=== PATIENT | female | born 1985 | race Caucasian/White ===

== ENCOUNTER 2024-03-15 12:54 | Inpatient (IN) | payer MEDICAID ==
[~2024-03-15] VITALS: Ht 160 cm; Wt 150.1 kg
[~2024-03-15 12:54] MED LIST: ALLO-97 PO; LISI-894 PO; METO-325 PO
[2024-03-15] MEDS: LORazepam 2 MG/ML VIAL IM ONE (14:45)
[2024-03-15] MEDS: HALOPERIDOL LACTATE 5 MG/ML VIAL IM ONE (14:45)
[2024-03-15] MEDS: DiphenhydrAMINE HCL 50 MG/ML VIAL IM ONE (14:45)
[2024-03-15 15:13] LABS: BASOPHILS % (AUTO) 0.5 % (0.0-2.0); EOSINOPHILS % (AUTO) 0.7 % (1.0-6.0); HEMATOCRIT 48.5 % (36-46); HEMOGLOBIN 16.1 g/dL (12.0-16.0); LYMPHOCYTES # (AUTO) 2.8 K/uL (1.0-4.8); MEAN CORPUSCULAR HEMOGLOBIN 27.7 pg (26.0-34.0); MEAN CORPUSCULAR HGB CONC 33.1 G/dL (31.0-37.0); MEAN CORPUSCULAR VOLUME 83 fL (80-100); MONOCYTES # (AUTO) 0.5 K/uL (0.1-1.0); MONOCYTES % (AUTO) 5.3 % (2.0-9.0); NEUTROPHILS # (AUTO) 6.6 K/uL (1.8-7.7); NEUTROPHILS % (AUTO) 65.5 % (40.0-70.0); PLATELET COUNT (AUTO) 438 K/uL (150-450); RED BLOOD CELL COUNT(AUTO) 5.81 MIL/uL (4.00-5.20); RED CELL DISTRIBUTION WIDTH 14.9 % (11.5-14.5); WHITE BLOOD COUNT (AUTO) 10.1 K/uL (4.5-11.0)
[2024-03-15] MEDS: HALOPERIDOL 5 MG TABLET PO ONE (15:19)
[2024-03-15] MEDS: LORazepam 2 MG TABLET PO ONE (15:19)
[2024-03-15 15:38] LABS: ANION GAP 16 mmol/L (8-16); CALCIUM, TOTAL 9.8 mg/dL (8.8-10.5); CARBON DIOXIDE 21 mmol/L (22-29); CHLORIDE 100 mmol/L (98-107); CREATININE 1.07 mg/dL (0.60-1.30); GLOMERULAR FILTR. RATE CALC 58 mL/min (>60); GLUCOSE,RANDOM 139 mg/dL (70-110); POTASSIUM 4.2 mmol/L (3.5-5.1); SODIUM SERUM 137 mmol/L (136-145); UREA NITROGEN, BLOOD 31 mg/dL (7-18)
[2024-03-15 15:46] LABS: ALCOHOL, BLOOD (SERUM) < 3 mg/dL (0-10)
[2024-03-15] MEDS: LOPERAMIDE HCL 2 MG CAPSULE PO ONE (18:29)
[2024-03-15] MEDS ORDERED: ZOLPIDEM TARTRATE 10 MG TABLET PO PRN (23:00)
[2024-03-15] MEDS ORDERED: HALOPERIDOL 5 MG TABLET PO PRN (23:00)
[2024-03-16 05:10] LABS: COVID AG,FIA SOURCE NASAL SWAB
[2024-03-16] MEDS: LOPERAMIDE HCL 2 MG CAPSULE PO ONE (05:27)
[2024-03-16 05:32] LABS: SARS-COV2 (COVID) ANTIGEN,FIA Negative (Negative)
[2024-03-16] MEDS: DIPHENOXYLATE/ATROP 2.5-0.025 MG TABLET PO ONE (08:48)
[2024-03-16] MEDS: PHENOBARB/HYOSCY/ATROPINE/SCOP 5 ML UDCUP ELIXIR PO ONE (13:35)
[2024-03-16] MEDS: ONDANSETRON HCL 4 MG TABLET PO ONE (13:35)
[2024-03-16 23:12] VITALS: BP 111/66; PULSE 75; RESP 18; TEMP 97.6; O2SAT 97
[2024-03-16] MEDS ORDERED: LOPERAMIDE HCL 2 MG CAPSULE PO PRN (23:45)
[2024-03-16] MEDS ORDERED: DOCUSATE SODIUM 100 MG CAPSULE PO PRN (23:45)
[2024-03-16] MEDS ORDERED: GuaiFENesin/D-METHORPHAN [SUGAR-FREE] 200-20MG/10 ML SYRUP UDCUP PO PRN (23:45)
[2024-03-16] MEDS ORDERED: PETROLATUM,WHITE 28 GM JELLY TP PRN (23:45)
[2024-03-16] MEDS ORDERED: CloNIDine HCL 0.1 MG TABLET PO PRN (23:45)
[2024-03-16] MEDS ORDERED: ALBUTEROL SULFATE HFA 90 MCG/PUFF 8 GM INHALER IH PRN (23:45)
[2024-03-16] MEDS ORDERED: NICOTINE 14 MG/24 HOUR PATCH TD PRN (23:45)
[2024-03-16] MEDS ORDERED: ONDANSETRON HCL 4 MG TABLET PO PRN (23:45)
[2024-03-16] MEDS ORDERED: MAGNESIUM HYDROXIDE SUSPENSION 30 ML UDCUP PO PRN (23:45)
[2024-03-17] MEDS ORDERED: PNEUMOCOCCAL VACCINE POLYVALENT 0.5 ML SYRINGE [PPSV23] IM. ONE (00:30)
[2024-03-17] MEDS: MAG HYDROX/ALUMINUM HYD/SIMETH ES 30 ML SUSPENSION UDCUP PO PRN (06:01)
[2024-03-17 07:00] LABS: BASOPHILS % (AUTO) 0.5 % (0.0-2.0); EOSINOPHILS % (AUTO) 4.2 % (1.0-6.0); HEMATOCRIT 49.6 % (36-46); HEMOGLOBIN 16.6 g/dL (12.0-16.0); LYMPHOCYTES # (AUTO) 3.2 K/uL (1.0-4.8); LYMPHOCYTES % (AUTO) 31.6 % (22.0-44.0); MEAN CORPUSCULAR HEMOGLOBIN 28.2 pg (26.0-34.0); MEAN CORPUSCULAR HGB CONC 33.5 G/dL (31.0-37.0); MEAN CORPUSCULAR VOLUME 84 fL (80-100); MONOCYTES # (AUTO) 0.9 K/uL (0.1-1.0); MONOCYTES % (AUTO) 8.6 % (2.0-9.0); NEUTROPHILS # (AUTO) 5.6 K/uL (1.8-7.7); NEUTROPHILS % (AUTO) 55.1 % (40.0-70.0); PLATELET COUNT (AUTO) 467 K/uL (150-450); RED BLOOD CELL COUNT(AUTO) 5.89 MIL/uL (4.00-5.20); RED CELL DISTRIBUTION WIDTH 14.5 % (11.5-14.5); WHITE BLOOD COUNT (AUTO) 10.2 K/uL (4.5-11.0)
[2024-03-17 07:20] LABS: RBC MORPHOLOGY COMMENT NORMAL RBC MORPH
[2024-03-17 07:24] LABS: ALANINE AMINOTRANSFERASE 62 U/L (12-78); ALBUMIN 4.1 g/dL (3.4-5.0); ALKALINE PHOSPHATASE 84 U/L (46-116); ANION GAP 18 mmol/L (8-16); ASPARTATE AMINOTRANSFERASE 43 U/L (15-37); BILIRUBIN,TOTAL 0.5 mg/dL (0.1-1.0); CALCIUM, TOTAL 8.9 mg/dL (8.8-10.5); CARBON DIOXIDE 20 mmol/L (22-29); CHLORIDE 96 mmol/L (98-107); CREATININE 1.79 mg/dL (0.60-1.30); GLOMERULAR FILTR. RATE CALC 32 mL/min (>60); GLUCOSE,RANDOM 168 mg/dL (70-110); SODIUM SERUM 134 mmol/L (136-145); THYROID STIMULATING HORMONE 4.79 uIU/mL (0.36-3.74); TOTAL PROTEIN, SERUM 8.5 g/dL (6.4-8.2); UREA NITROGEN, BLOOD 41 mg/dL (7-18)
[2024-03-17 07:28] LABS: POTASSIUM 2.9 mmol/L (3.5-5.1)
[2024-03-17 07:35] LABS: CHOL/HDL RATIO 8.3 (3.9-5.7); CHOLESTEROL 256 mg/dL (131-200); HDL CHOLESTEROL 31 mg/dL (40-60); TRIGLYCERIDES 491 mg/dL (15-150)
[2024-03-17] MEDS: METOPROLOL SUCCINATE 50 MG ER TABLET PO SCH (08:12)
[2024-03-17] MEDS: LISINOPRIL 20 MG TABLET PO SCH (08:12)
[2024-03-17] MEDS: ALLOPURINOL 100 MG TABLET PO SCH (08:12)
[2024-03-17 09:02] VITALS: BP 105/56; PULSE 77; RESP 17; TEMP 98; O2SAT 96
[2024-03-17] MEDS: POTASSIUM CHLORIDE 20 MEQ ER TABLET PO ONE (09:51)
[2024-03-17] MEDS ORDERED: SERT-438 PO (12:55)
[2024-03-17] MEDS ORDERED: TIRZ5PEN SQ (13:00)
[2024-03-17] MEDS ORDERED: GABA-1181 PO (13:00)
[2024-03-17] MEDS ORDERED: FENO160T16 PO (13:00)
[2024-03-17] MEDS ORDERED: TRIA16.911 NASAL (13:00)
[2024-03-17] MEDS ORDERED: LEVO75CA5 PO (13:00)
[2024-03-17] MEDS ORDERED: ERGO500093 PO (13:00)
[2024-03-17] MEDS ORDERED: MEDR10TA11 PO (13:00)
[2024-03-17] MEDS ORDERED: EMPA25TA3 PO (13:00)
[2024-03-17] MEDS ORDERED: ATOR40TA71 PO (13:00)
[2024-03-17] MEDS ORDERED: METF-446 PO (13:00)
[2024-03-17] MEDS ORDERED: PRAZ1 PO (13:00)
[2024-03-17] MEDS ORDERED: COLC0.6T73 PO (13:00)
[2024-03-17] MEDS ORDERED: ALLO300T2 PO (13:00)
[2024-03-17] MEDS: LORazepam 2 MG TABLET PO PRN (13:56)
[2024-03-17] MEDS: SERTRALINE HCL 50 MG TABLET PO SCH (14:35)
[2024-03-18 08:39] VITALS: BP 122/81; PULSE 76; RESP 18; TEMP 97.4; O2SAT 98
[2024-03-18] MEDS: POTASSIUM CHLORIDE 20 MEQ ER TABLET PO ONE (11:29)
== END 2024-03-18 13:30 | disposition home or self-care (01) | DRG 751 ==
LOC: EMS 12:58 → 3EC 03-16 17:04
PROVIDERS: ADMIT Psychiatry & Neurology Psychiatry; ATTEND Psychiatry & Neurology Psychiatry
PROC: GZHZZZZ Group Psychotherapy (ICD-10-PCS; principal; 2024-03-17)
PROC: GZ51ZZZ Individual Psychotherapy, Behavioral (ICD-10-PCS; 2024-03-17)
DX: F33.2 Major depressive disorder, recurrent severe without psychotic features (principal); I27.20 Pulmonary hypertension, unspecified; R45.851 Suicidal ideations; I50.9 Heart failure, unspecified; M10.9 Gout, unspecified; Z20.822 Contact with and (suspected) exposure to COVID-19; E66.01 Morbid (severe) obesity due to excess calories; F43.10 Post-traumatic stress disorder, unspecified; I11.0 Hypertensive heart disease with heart failure; E87.6 Hypokalemia; M06.9 Rheumatoid arthritis, unspecified; Z79.899 Other long term (current) drug therapy
CPT/HCPCS: 80048; 80053; 80061; 83036; 84132; 84443; 84703; 85025; 99285; G0480; Q0162